=== PATIENT | female | born 1990 | race Caucasian/White ===

== ENCOUNTER 2016-08-30 17:37 | Outpatient (CLI) | payer OTHER ==
[~2016-08-30] VITALS: Ht 160 cm; Wt 102.7 kg
[2016-08-30 18:10] VITALS: BP 117/66
== END 2016-08-30 19:02 | disposition home or self-care (01) ==
LOC: LDOP 17:37
PROVIDERS: ATTEND Student in an Organized Health Care Education/Training Program
DX: O26.893 Other specified pregnancy related conditions, third trimester (principal); R10.9 Unspecified abdominal pain; M54.9 Dorsalgia, unspecified; Z3A.34 34 weeks gestation of pregnancy
CPT/HCPCS: 59025; 81001; 87086; 99201; G0463

== ENCOUNTER 2017-02-14 19:52 | Emergency (ER) | payer MEDICAID, OTHER ==
[~2017-02-14] VITALS: Ht 160 cm; Wt 98.2 kg
[2017-02-14] MEDS ORDERED: KETOROLAC 30 MG/1 ML ONE (20:12)
[2017-02-14] MEDS ORDERED: KETOROLAC 30 MG/1 ML IM ONE (20:30)
[2017-02-14 21:35] VITALS: BP 124/78
== END 2017-02-14 21:37 | disposition home or self-care (01) ==
LOC: ED 20:00
DX: M94.0 Chondrocostal junction syndrome [Tietze] (principal)
CPT/HCPCS: 71020; 93005; 96372; 99284; J1885

== ENCOUNTER 2018-05-08 22:52 | Emergency (ER) | payer BC, MEDICAID ==
[~2018-05-08] VITALS: Ht 157.5 cm; Wt 106.0 kg
[2018-05-08 22:57] VITALS: BP 119/80
--- NOTE | 2018-05-08 23:38 | NUR ---
NO N/V NOTED WHILE PT IN LOBBY.
[2018-05-09 00:37] LABS: BASOPHILS # (AUTO) 0.01 x10^3/uL (0-0.1); BASOPHILS % (AUTO) 0 % (0-1); EOSINOPHILS # (AUTO) 0.07 x10^3/uL (0-0.4); EOSINOPHILS % (AUTO) 1 % (1-7); LYMPHOCYTES # (AUTO) 1.85 x10^3/uL (1-3.4); LYMPHOCYTES % (AUTO) 37 % (22-44); MD NO; MEAN CORPUSCULAR HEMOGLOBIN 29.1 pg (27.0-34.8); MEAN CORPUSCULAR HGB CONC 34.2 g/dL (32.4-35.8); MEAN CORPUSCULAR VOLUME 85.1 fL (80-100); MEAN PLATELET VOLUME 7.7 fL (7.4-10.4); MONOCYTES # (AUTO) 0.57 x10^3/uL (0.2-0.8); MONOCYTES % (AUTO) 11 % (2-9); NEUTROPHILS # (AUTO) 2.53 x10^3/uL (1.8-6.8); NEUTROPHILS % (AUTO) 50 % (42-75); PLATELET COUNT 261 x10^3/uL (130-400); RED BLOOD COUNT 4.72 x10^6/uL (3.82-5.3)
[2018-05-09 00:50] LABS: ALANINE AMINOTRANSFERASE 45 U/L (12-78); ALBUMIN 3.4 g/dL (3.4-5.0); ANION GAP 6 mmol/L (5-15); CALCIUM 8.7 mg/dL (8.5-10.1); CHLORIDE 108 mmol/L (98-107); CREATININE 0.77 mg/dL (0.55-1.02)
[2018-05-09 00:54] LABS: ALKALINE PHOSPHATASE 80 U/L (45-117); BILIRUBIN,TOTAL 0.5 mg/dL (0.2-1.0); TOTAL PROTEIN 7.2 g/dL (6.4-8.2)
--- NOTE | 2018-05-09 02:03 | NUR ---
Patient/Caregiver given discharge instructions and they have confirmed that they understand the instructions. Patient ambulatory with steady gait.
== END 2018-05-09 02:05 | disposition home or self-care (01) ==
LOC: ED 23:59
DX: L02.213 Cutaneous abscess of chest wall (principal)
CPT/HCPCS: 36415; 80053; 84703; 85025; 99283

== ENCOUNTER 2019-06-06 19:15 | Emergency (ER) | payer BC, MEDICAID, OTHER ==
[~2019-06-06] VITALS: Ht 172.7 cm; Wt 107.5 kg
[2019-06-06 20:18] LABS: RAPID INFLUENZA A Negative (Negative); RAPID INFLUENZA B Negative (Negative)
--- NOTE | 2019-06-06 20:51 | NUR ---
COUGH X 2-3 DAYS. ABD PAIN W/ COUGHING. NO MEDS TAKEN FOR COUGH. 6 WKS PG. PT NEGATIVE REPLIES TO COVID SCREENING QUESTIONS. DENIES FEVER. REPORTS "REALLY BAD MIGRAINE FROM IT (COUGHING). LMP: 04/25/2019. REPORTS NAUSEA (R/T ) - STARTED PRIOR TO COUGH.
[2019-06-06] MEDS ORDERED: PRENATAL VITAMIN (20:55)
--- NOTE | 2019-06-06 21:08 | NUR ---
PT AWAITING U/S. RESTING COMFORTABLY ON GURNEY, CALL LIGHT W/IN REACH. SPOUSE & SON IN ROOM.
--- NOTE | 2019-06-06 23:00 | NUR ---
PT REPORT TO MARIO OSEI. PT CARE TRANSFERRED.
--- NOTE | 2019-06-06 23:10 | NUR ---
LABS DRAWN AT THIS TIME. PT RESTING ON [place] WITH FAMILY AT BS. CALL LIGHT WITHIN REACH, ALL SAFETY MEASURES IN PLACE.
[2019-06-06 23:31] VITALS: BP 117/61
== END 2019-06-06 22:14 ==
LOC: ED 22:05
DX: O98.511 Other viral diseases complicating pregnancy, first trimester (principal); Z20.828 Contact with and (suspected) exposure to other viral communicable diseases; B34.9 Viral infection, unspecified; Z3A.01 Less than 8 weeks gestation of pregnancy
CPT/HCPCS: 36415; 71046; 76801; 84702; 87081; 87400; 87880; 99285

== ENCOUNTER 2019-06-08 17:45 | Emergency (ER) | payer MEDICAID, OTHER ==
[~2019-06-08] VITALS: Ht 157.5 cm; Wt 107.4 kg
[~2019-06-08 17:45] MED LIST: PRENATAL VITAMIN
[2019-06-08 18:06] VITALS: BP 132/80
--- NOTE | 2019-06-08 18:15 | NUR ---
WARE TESTER: PT TO ROOM FROM TARUN GARNICA
--- NOTE | 2019-06-08 19:10 | NUR ---
REPORT RECEIVED FROM MARIO FONSECA. PLAN OF CARE DISCUSSED
--- NOTE | 2019-06-08 19:45 | NUR ---
PATIENT IN US
--- NOTE | 2019-06-08 21:17 | NUR ---
Patient/Caregiver given discharge instructions and they have confirmed that they understand the instructions. Patient ambulatory with steady gait.
== END 2019-06-08 21:19 | disposition home or self-care (01) ==
LOC: ED 21:00
DX: O26.891 Other specified pregnancy related conditions, first trimester (principal); Z3A.01 Less than 8 weeks gestation of pregnancy
CPT/HCPCS: 36415; 76801; 84702; 99284